=== PATIENT | female | born 1985 | race Caucasian/White ===

== ENCOUNTER 2017-06-02 12:20 | Emergency (ER) | payer OTHER ==
--- NOTE | 2017-06-02 13:30 | Emergency Department Report ---
Chief Complaint: Sore Throat Stated Complaint: PINK EYE/THROAT PAIN/FLU Time Seen by Provider: 06/02/17 13:30 - HPI History of Present Illness: VSS NAD AMBULATORY TAKING PO - Exam Vital Signs: Vital Signs 06/02/17 12:30 Temperature 98.7 F Pulse Rate 91 H Respiratory 18 Rate Blood Pressure 115/67 O2 Sat by Pulse 99 Oximetry MSE screening note: Focused history and physical exam performed. Due to findings the following was ordered: ED Disposition for MSE Condition: Stable
[2017-06-02 13:54] LABS: Bilirubin,Urine NEG (Negative); Blood,Urine NEG (Negative); Color,Urine Yellow (Yellow); Mucus,Urine FEW /HPF; Nitrite,Urine NEG (Negative)
[2017-06-02 13:56] LABS: HCG Qualitative,Urine Negative (Negative)
--- NOTE | 2017-06-02 15:11 | Emergency Department Report ---
Minor Respiratory - HPI Chief Complaint: Sore Throat Stated Complaint: PINK EYE/THROAT PAIN/FLU Time Seen by Provider: 06/02/17 13:30 Duration: 5 Days Pain Location: Facial, Throat, Nose Severity: moderate Minor Respiratory: Yes Sore Throat, Yes Able to Tolerate Fluids, Yes Ear Pain (R ), Yes Fever, No Rhinorrhea, No Cough, No Sick Contacts, No Hemoptysis, No Chest Pain, No Shortness of Breath ED Review of Systems ROS: Stated complaint: PINK EYE/THROAT PAIN/FLU Other details as noted in HPI Comment: All other systems reviewed and negative Constitutional: fever (PER PT SUBJ) Eyes: eye discharge (IN AM) ENT: throat pain, other (SINUS PAIN) Respiratory: cough ED Past Medical Hx - Past Medical History Additional medical history: hypothyroid, PCOS - Surgical History Additional Surgical History: C/S - Social History Smoking Status: Former Smoker Substance Use Type: Alcohol - Medications Home Medications: Home Medications Medication Instructions Recorded Confirmed Last Taken Type Amoxicillin 500 mg PO BID #20 capsule 06/02/17 Unknown Rx Polymyxin B Sulf/Trimethoprim 10 ml OP Q4H #1 drops 06/02/17 Unknown Rx [Polytrim Eye Drops] predniSONE [Deltasone] 20 mg PO QDAY #5 tab 06/02/17 Unknown Rx Minor Respiratory Exam - Exam General: Vital signs noted. No distress. Alert and acting appropriately. HEENT: Yes Pharyngeal Erythema, Yes Moist Mucous Membranes, Yes Conjuctival Injection, Yes Frontal Tenderness, Yes Maxillary Tenderness, No Pharyngeal Exudates, No Rhinorrhea Ear: Right TM Erythema, Neither TM Bulge, Neither EAC Pain, Neither EAC Discharge Neck: Yes Supple, No Adenopathy Lungs: Yes Good Air Exchange, No Wheezes, No Ronchi, No Stridor, No Cough, No Labored Respirations, No Retractions, No Use of Accessory Muscles, No Other Abnormal Lung Sounds Heart: Yes Regular, No Murmur Abdomen: Yes Normal Bowel Sounds, No Tenderness, No Peritoneal Signs Skin: No Rash, No Edema Neurologic: Alert and oriented, no deficits. Musculoskeletal: Unremarkable. ED Course Vital Signs 06/02/17 12:30 Temperature 98.7 F Pulse Rate 91 H Respiratory 18 Rate Blood Pressure 115/67 O2 Sat by Pulse 99 Oximetry - Reevaluation(s) Reevaluation #1: 06/02/17 15:12 VSS NO FEVER NON TOXIC AMBULATORY TAKING PO ED Medical Decision Making - Medical Decision Making SEE NOTE - Differential Diagnosis URTI Critical care attestation.: If time is entered above; I have spent that time in minutes in the direct care of this critically ill patient, excluding procedure time. ED Disposition Clinical Impression: URTI (acute upper respiratory infection), Sinusitis, Conjunctivitis Disposition: TO HOME OR SELFCARE Is pt being admited?: No Does the pt Need Aspirin: No Condition: Stable Instructions: Sinusitis (ED), Conjunctivitis (ED), Upper Respiratory Infection (ED) Additional Instructions: REST FLUIDS MOST LIKELY THERE IS A VIRAL COMPONENT TO THIS WHICH WILL TAKE TIME TO GET BETTER MEDS ORDERED FOLLOW UP PCP SUNDAY IF NOT BETTER MOTRIN OR TYLENOL OVER THE COUNTER FOR PAIN OR FEVER FLONASE OVER THE COUNTER DAILY FOR SINUS Referrals: ILIANA CARDONA MD [Primary Care Provider] - 3-5 Days NEMESIO BYERS MD [Staff Physician] - 3-5 Days Time of Disposition: 15:09
[2017-06-02 15:29] VITALS: BP 109/69
== END 2017-06-02 15:33 | disposition home or self-care (01) ==
LOC: ED 12:20
DX: J32.9 Chronic sinusitis, unspecified (principal); H10.9 Unspecified conjunctivitis; J06.9 Acute upper respiratory infection, unspecified; E03.9 Hypothyroidism, unspecified; Z87.891 Personal history of nicotine dependence
CPT/HCPCS: 81001; 81025; 99283